=== PATIENT | male | born 1975 | race Asian ===

== ENCOUNTER 2018-02-02 21:58 | Inpatient (IN) | payer OTHER ==
[2018-02-02] MEDS: SOD CHLORIDE 0.9% 1,000 ML IV (23:10)
[2018-02-02] MEDS: LORAZEPAM 2 MG INJ IM (23:11)
[2018-02-02] MEDS: FAMOTIDINE 20 MG INJ IV (23:11)
[2018-02-02 23:12] LABS: ADD UMIC YES; UR ASCORBIC ACID NEGATIVE (NEGATIVE); UR BILIRUBIN (Dip) NEGATIVE (NEGATIVE); UR BLOOD (Dip) 2+ mg/dL (NEGATIVE); UR CLARITY CLEAR (CLEAR); UR COLOR YELLOW (YELLOW); UR GLUCOSE (Dip) NEGATIVE (NEGATIVE); UR KETONES (Dip) TRACE mg/dL (NEGATIVE); UR LEUKOCYTE ESTERASE (Dip) NEGATIVE Leu/ul (NEGATIVE); UR MUCUS FEW /HPF (NONE SEEN); UR NITRITE (Dip) NEGATIVE (NEGATIVE); UR RBC 9 /HPF (0-5); UR SPECIFIC GRAVITY (Dip) 1.019 (1.003-1.030); UR TOTAL PROTEIN (Dip) 3+ mg/dl (NEGATIVE); UR UROBILINOGEN (Dip) NEGATIVE (NEGATIVE); UR WBC 2 /HPF (0-5)
[2018-02-02] MEDS: ONDANSETRON 4 MG INJ IV (23:12)
[2018-02-02 23:19] LABS: ADD MAN DIFF? NO
[2018-02-02 23:21] LABS: WHITE BLOOD COUNT 7.7 10^3/ul (4.8-10.8)
[2018-02-02 23:21] LABS: BASOPHIL # 0.2 10^3/ul (0.0-0.1); BASOPHILS % 1.9 % (0.0-2.0); EOSINOPHILS # 0.1 10^3/ul (0.0-0.5); EOSINOPHILS % 1.8 % (0.0-7.0); HEMATOCRIT 54.3 % (42.0-52.0); HEMOGLOBIN 18.2 g/dl (14.0-18.0); LYMPHOCYTES # 2.1 10^3/ul (0.8-2.9); LYMPHOCYTES % 27.1 % (15.0-51.0); MEAN CORPUSCULAR HEMOGLOBIN 28.8 pg (29.0-33.0); MEAN CORPUSCULAR HGB CONC 33.5 g/dl (32.0-37.0); MEAN CORPUSCULAR VOLUME 85.9 fl (82.0-101.0); MEAN PLATELET VOLUME 8.7 fl (7.4-10.4); MONOCYTE # 0.3 10^3/ul (0.3-0.9); MONOCYTES % 3.4 % (0.0-11.0); NEUTROPHILS % 65.4 % (39.0-77.0); PLATELET COUNT 334 10^3/UL (140-415); RED BLOOD COUNT 6.32 10^6/ul (4.70-6.10); RED CELL DISTRIBUTION WIDTH 13.7 % (11.5-14.5)
[2018-02-02] MEDS: LORAZEPAM 2 MG INJ IV (23:27)
[2018-02-02 23:32] LABS: AMPHETAMINE/METHAMPHETAMINE Negative (NEGATIVE); BARBITURATES Negative (NEGATIVE); BENZODIAZEPINES Negative (NEGATIVE); CANNABINOIDS Negative (NEGATIVE); COCAINE Negative (NEGATIVE); OPIATES Negative (NEGATIVE)
[2018-02-02 23:41] LABS: ALANINE AMINOTRANSFERASE 73 IU/L (13-69); ALBUMIN 4.9 g/dl (3.3-4.9); ALKALINE PHOSPHATASE 44 IU/L (42-121); ANION GAP 26 (8-16); ASPARTATE AMINO TRANSFERASE 99 IU/L (15-46); BILIRUBIN,INDIRECT 1.3 mg/dl (0-1.1); BILIRUBIN,TOTAL 1.3 mg/dl (0.2-1.3); BLOOD UREA NITROGEN 17 mg/dl (7-20); CALCIUM 8.5 mg/dl (8.4-10.2); CARBON DIOXIDE 21 mmol/L (21-31); CHLORIDE 103 mmol/L (97-110); CREATININE 0.96 mg/dl (0.61-1.24); GLUCOSE 112 mg/dl (70-220); LIPASE 101 U/L (23-300); POTASSIUM 4.3 mmol/L (3.5-5.1); SODIUM 146 mmol/L (135-144); TOTAL PROTEIN 8.4 g/dl (6.1-8.1)
[2018-02-02 23:43] LABS: CREATINE KINASE 895 IU/L (23-200)
[2018-02-02 23:44] LABS: AMMONIA 16 umol/l (9-30)
[2018-02-03] MEDS ORDERED: THIAMINE 200 MG INJ IV (01:30)
[2018-02-03] MEDS ORDERED: NACL 0.9% 3 ML SYG IV (02:00)
[2018-02-03] MEDS ORDERED: BISACODYL (EC) 5 MG TAB PO (02:00)
[2018-02-03] MEDS ORDERED: DOCUSATE SODIUM 100 MG CAP PO (02:00)
[2018-02-03] MEDS: CHLORDIAZEPOXIDE 25 MG CAP PO ×3 (02:24→23:38)
[2018-02-03] MEDS: MAGNESIUM SULFATE 2 GM/50 ML 50 ML IVPB (02:24)
[2018-02-03] MEDS: THIAMINE 500 MG in SOD CHLORIDE 0.9% 250 ML IVPB (02:25)
[2018-02-03] MEDS: LORAZEPAM 2 MG INJ IV ×7 (03:24→21:12)
[2018-02-03] MEDS: MULTIVITAMINS 10 ML, THIAMINE 100 MG, FOLIC ACID 1 MG in SOD CHLORIDE 0.9% 1,000 ML IVPB ×2 (04:07→09:31)
[2018-02-03] MEDS: SOD CHLORIDE 0.9% 1,000 ML IV ×3 (04:08→17:07)
[2018-02-03] MEDS: ONDANSETRON 4 MG INJ IV (04:11)
[2018-02-03] MEDS: PROCHLORPERAZINE 10 MG INJ IM (06:32)
[2018-02-03 06:41] LABS: FOLATE 10.4 ng/ml (2.8-20.0)
[2018-02-03 08:21] LABS: CREATINE KINASE 943 IU/L (23-200)
[2018-02-03 08:28] LABS: INR 0.98; PROTIME 13.1 Sec (11.9-14.9)
[2018-02-03 08:29] LABS: PARTIAL THROMBOPLASTIN TIME 25.2 Sec (25.0-35.0)
[2018-02-03] MEDS: THIAMINE 200 MG INJ IM (09:30)
[2018-02-03] MEDS: ACETAMINOPHEN 325 MG TAB PO (19:33)
[2018-02-04] MEDS: SOD CHLORIDE 0.9% 1,000 ML IV ×3 (02:00→17:55)
[2018-02-04] MEDS: MULTIVITAMINS 10 ML, THIAMINE 100 MG, FOLIC ACID 1 MG in SOD CHLORIDE 0.9% 1,000 ML IVPB (09:41)
[2018-02-04] MEDS: CHLORDIAZEPOXIDE 25 MG CAP PO ×4 (09:41→20:35)
[2018-02-04 10:06] LABS: ADD MAN DIFF? NO
[2018-02-04 10:50] LABS: WHITE BLOOD COUNT 8.1 10^3/ul (4.8-10.8)
[2018-02-04 10:50] LABS: BASOPHIL # 0.1 10^3/ul (0.0-0.1); BASOPHILS % 0.9 % (0.0-2.0); EOSINOPHILS # 0.5 10^3/ul (0.0-0.5); EOSINOPHILS % 6.3 % (0.0-7.0); HEMATOCRIT 44.9 % (42.0-52.0); HEMOGLOBIN 14.9 g/dl (14.0-18.0); LYMPHOCYTES # 1.1 10^3/ul (0.8-2.9); MEAN CORPUSCULAR HEMOGLOBIN 28.8 pg (29.0-33.0); MEAN CORPUSCULAR HGB CONC 33.2 g/dl (32.0-37.0); MEAN CORPUSCULAR VOLUME 86.8 fl (82.0-101.0); MONOCYTE # 0.4 10^3/ul (0.3-0.9); MONOCYTES % 4.7 % (0.0-11.0); NEUTROPHILS % 73.9 % (39.0-77.0); PLATELET COUNT 206 10^3/UL (140-415); RED BLOOD COUNT 5.17 10^6/ul (4.70-6.10); RED CELL DISTRIBUTION WIDTH 13.6 % (11.5-14.5)
[2018-02-04 10:59] LABS: ALANINE AMINOTRANSFERASE 87 IU/L (13-69); ALBUMIN 4.1 g/dl (3.3-4.9); ALBUMIN/GLOBULIN RATIO 1.24; ALKALINE PHOSPHATASE 41 IU/L (42-121); ANION GAP 14 (8-16); ASPARTATE AMINO TRANSFERASE 148 IU/L (15-46); BILIRUBIN,INDIRECT 1.8 mg/dl (0-1.1); BILIRUBIN,TOTAL 1.8 mg/dl (0.2-1.3); BLOOD UREA NITROGEN 12 mg/dl (7-20); CALCIUM 8.7 mg/dl (8.4-10.2); CARBON DIOXIDE 23 mmol/L (21-31); CHLORIDE 105 mmol/L (97-110); CHOL/HDL RATIO 2.2 RATIO; CHOLESTEROL 130 mg/dl (100-200); CREATININE 0.68 mg/dl (0.61-1.24); GLUCOSE 122 mg/dl (70-220); HDL CHOLESTEROL 58 mg/dl (27-67); LDL CHOLESTEROL,CALCULATED 26 mg/dl; MAGNESIUM 1.9 mg/dl (1.7-2.5); POTASSIUM 4.3 mmol/L (3.5-5.1); SODIUM 138 mmol/L (135-144); TOTAL PROTEIN 7.4 g/dl (6.1-8.1); TRIGLYCERIDES 229 mg/dl (0-149)
[2018-02-04 12:00] LABS: CREATINE KINASE 1173 IU/L (23-200)
[2018-02-04] MEDS: THIAMINE 200 MG INJ IM (12:14)
[2018-02-04 14:26] LABS: HEMOGLOBIN A1C 5.5 % (0-5.9)
[2018-02-04] MEDS ORDERED: LORAZEPAM 1 MG TAB PO ×2 (20:30→21:00)
[2018-02-04] MEDS: ACETAMINOPHEN 325 MG TAB PO (21:41)
[2018-02-04] MEDS: LORAZEPAM 1 MG TAB PO (21:49)
[2018-02-05] MEDS: LORAZEPAM 1 MG TAB PO ×2 (01:59→04:49)
[2018-02-05] MEDS: SOD CHLORIDE 0.9% 1,000 ML IV ×2 (02:00→09:20)
[2018-02-05] MEDS: MULTIVITAMINS 10 ML, THIAMINE 100 MG, FOLIC ACID 1 MG in SOD CHLORIDE 0.9% 1,000 ML IVPB (08:02)
[2018-02-05] MEDS: CHLORDIAZEPOXIDE 25 MG CAP PO (08:11)
[2018-02-05] MEDS: THIAMINE 200 MG INJ IM (09:20)
[2018-02-09 18:46] LABS: VITAMIN B1 (THIAMINE) > 1200 nmol/L (78-185)
== END 2018-02-05 09:30 | disposition home or self-care (01) | DRG 897 ==
LOC: E/R 21:58 → TEL 02-03 01:35
DX: F10.229 Alcohol dependence with intoxication, unspecified (principal); M62.82 Rhabdomyolysis; E87.0 Hyperosmolality and hypernatremia; F10.239 Alcohol dependence with withdrawal, unspecified; E86.0 Dehydration; Y90.8 Blood alcohol level of 240 mg/100 ml or more
CPT/HCPCS: 36415; 70450; 76705; 80053; 80061; 80307; 81001; 82140; 82550; 82607; 82746; 83036; 83690; 83735; 84425; 84443; 85025; 85610; 85730; 96361; 96372; 96374; 96375; 99285-25